=== PATIENT | female | born 1990 | race Caucasian/White ===

== ENCOUNTER 2016-11-01 20:30 | Emergency (ER) | payer OTHER ==
[2016-11-01 20:41] VITALS: BP 122/70; PULSE 84; RESP 16; TEMP 99.2; O2SAT 100
--- NOTE | 2016-11-01 21:12 | ED PDOC ---
HPI: Female Pain Time Seen by Provider: 11/01/16 20:51 Chief Complaint (Nursing): Female Genitourinary Chief Complaint (Provider): vaginal discomfort History Per: Patient History/Exam Limitations: no limitations Onset/Duration Of Symptoms: Days (1) Current Symptoms Are (Timing): Still Present Additional History Per: Patient Additional Complaint(s): 26 y/o female presents for eval of vaginal discomfort x 1 day. Patient states she feels "uncomfortable" down there, and notes a foul-smelling odor that started today. Patient states she treated herself with monistat last week for symptoms of yeast infection because she usually gets one when she switches soaps. Denies fever, nausea/vomiting, abdominal/pelvic pain, vaginal bleeding/ discharge. Patient states she is sexually active with one partner and does not use protection; no reason to suspect STD. Past Medical History Reviewed: Historical Data, Nursing Documentation, Vital Signs Vital Signs: Last Vital Signs Temp 99.2 F 11/01/16 20:39 Pulse 84 11/01/16 20:39 Resp 16 11/01/16 20:39 BP 122/70 11/01/16 20:39 Pulse Ox 100 11/01/16 20:39 - Medical History PMH: No Chronic Diseases, Gastritis - Surgical History Surgical History: No Surg Hx - Family History Family History: States: Unknown Family Hx - Living Arrangements Living Arrangements: With Family - Home Medications Home Medications: Ambulatory Orders Medication Instructions Recorded Omeprazole [PrilOSEC] 40 mg PO DAILY #30 ecc 09/08/14 Omeprazole Magnesium [Prilosec Otc] 20 mg PO DAILY #14 tcp 02/08/15 Azithromycin [Zithromax Z-Luis Enrique] 250 mg PO DAILY #1 packet 04/23/15 Benzonatate [Tessalon Perles] 200 mg PO Q8H PRN #30 tab 04/23/15 Fluconazole [Diflucan] 150 mg PO ONCE #1 tab 11/01/16 Metronidazole [Flagyl] 500 mg PO BID #14 tablet 11/01/16 - Allergies Allergies/Adverse Reactions: Allergies Allergy/AdvReac Type Severity Reaction Status Date / Time No Known Allergies Allergy Verified 11/01/16 20:39 Review of Systems ROS Statement: Except As Marked, All Systems Reviewed And Found Negative Genitourinary Female: Positive for: Other ("discomfort") Physical Exam - Reviewed Nursing Documentation Reviewed: Yes Vital Signs Reviewed: Yes - Physical Exam Appears: Positive for: Well, Non-toxic, No Acute Distress Head Exam: Positive for: ATRAUMATIC, NORMAL INSPECTION, NORMOCEPHALIC Skin: Positive for: Normal Color Cardiovascular/Chest: Positive for: Regular Rate, Rhythm Respiratory: Positive for: Normal Breath Sounds Gastrointestinal/Abdominal: Positive for: Normal Exam, Bowel Sounds, Soft. Negative for: Tenderness Pelvic Exam: Positive for: External Exam Normal, No Cerv. Motion Tender, Discharge (small white/clear discharge noted vaginal vault; + "fishy" odor noted ), Other (exam chaperoned by medical equipment repair technicianeladio Elam). Negative for: Active Bleeding Extremity: Positive for: Normal ROM Neurologic/Psych: Positive for: Alert, Oriented - ECG O2 Sat by Pulse Oximetry: 100 - Progress ED Course And Treament: urine, cultures PAtient educated on findings, discharged with rx Flagyl and Diflucan. Advised follow up [facility] 2-3 days. Return to ED for worsening/concerning symptoms. Disposition - Clinical Impression Clinical Impression: Bacterial vaginosis - Patient ED Disposition Is Patient to be Admitted: No Counseled Patient/Family Regarding: Studies Performed, Diagnosis, Need For Followup, Rx Given - Disposition Disposition: Routine/Home Disposition Time: 21:48 Condition: GOOD Additional Instructions: Follow up with [facility] in 2-3 days. Use medication as directed. Return to ED for worsening/concerning symptoms. Prescriptions: Fluconazole [Diflucan] 150 mg PO ONCE #1 tab Metronidazole [Flagyl] 500 mg PO BID #14 tablet Instructions: Bacterial Vaginosis (ED)
== END 2016-11-01 22:25 | disposition home or self-care (01) ==
LOC: H.ER 20:30
DX: N76.0 Acute vaginitis (principal)

== ENCOUNTER 2017-02-27 07:19 | Day surgery (SDC) | payer OTHER ==
[2017-02-27 07:28] VITALS: BMI 22.6
[2017-02-27] MEDS ORDERED: Lactated Ringer's 500 ML IV ONE (07:40)
[2017-02-27 07:52] VITALS: O2SAT 100
[2017-02-27] MEDS ORDERED: Propofol 10 mg/ml Inj (20 ML) ONE (08:00)
[2017-02-27] MEDS ORDERED: Lidocaine 2% MPF (5 ml) Inj ONE (08:02)
[2017-02-27 09:33] VITALS: TEMP 96.8
[2017-02-27 09:34] VITALS: BP 108/70; PULSE 76; RESP 18
== END 2017-02-27 09:36 | disposition home or self-care (01) ==
LOC: H.ENDO 07:19
PROVIDERS: ATTEND Internal Medicine Gastroenterology
DX: K20.9 Esophagitis, unspecified (principal); K29.50 Unspecified chronic gastritis without bleeding; K44.9 Diaphragmatic hernia without obstruction or gangrene
CPT/HCPCS: 43239; 88305; J2704; J7120

== ENCOUNTER 2017-06-27 19:11 | Emergency (ER) | payer MEDICAID, OTHER ==
[2017-06-27 19:11] VITALS: BMI 22.6
[2017-06-27 19:29] VITALS: BP 127/67; PULSE 86; RESP 16; TEMP 97.9; O2SAT 100
--- NOTE | 2017-06-27 20:32 | ED PDOC ---
HPI: Female Pain Time Seen by Provider: 06/27/17 19:31 Chief Complaint (Nursing): Female Genitourinary Chief Complaint (Provider): yeast infection History Per: Patient History/Exam Limitations: no limitations Onset/Duration Of Symptoms: Days (1 week) Associated Symptoms: denies: Fever, Chills, Nausea, Vomiting, Diarrhea, Loss Of Appetite Additional Complaint(s): Itchy discharge for 2 week similar to previous episode of yeast infection. Had leftover vaginal topical cream from previous infection which she used, but not improved. Also concerned about STIs due to having unprotected sex. Denies rash or lesions. Denies fever or abdominal pain Past Medical History Reviewed: Historical Data, Nursing Documentation, Vital Signs Vital Signs: Last Vital Signs Temp 97.9 F 06/27/17 19:26 Pulse 86 06/27/17 19:26 Resp 16 06/27/17 19:26 BP 127/67 06/27/17 19:26 Pulse Ox 100 06/27/17 19:26 - Medical History PMH: Gastritis Denies: Chronic Kidney Disease - Family History Family History: States: Unknown Family Hx - Home Medications Home Medications: Ambulatory Orders Medication Instructions Recorded Fluconazole [Diflucan] 150 mg PO QWK #2 tab 06/27/17 - Allergies Allergies/Adverse Reactions: Allergies Allergy/AdvReac Type Severity Reaction Status Date / Time No Known Allergies Allergy Verified 06/27/17 19:26 Review of Systems ROS Statement: Except As Marked, All Systems Reviewed And Found Negative (and as per HPI) Gastrointestinal: Negative for: Nausea, Vomiting, Abdominal Pain, Diarrhea Genitourinary Female: Positive for: Vaginal Discharge. Negative for: Dysuria, Frequency, Vaginal Bleeding, Pelvic Pain, Rash Skin: Negative for: Rash, Lesions Physical Exam - Reviewed Nursing Documentation Reviewed: Yes Vital Signs Reviewed: Yes - Physical Exam Appears: Positive for: No Acute Distress Head Exam: Positive for: ATRAUMATIC, NORMOCEPHALIC Skin: Positive for: Warm, Dry Gastrointestinal/Abdominal: Positive for: Soft. Negative for: Tenderness, Mass , Distended, Guarding, Rebound Back: Negative for: L CVA Tenderness, R CVA Tenderness - ECG O2 Sat by Pulse Oximetry: 100 Disposition - Clinical Impression Clinical Impression: Vaginitis - Disposition Referrals: Saúl Rust DO [Staff Provider] - Disposition: Routine/Home Disposition Time: 20:34 Condition: GOOD Additional Instructions: YOU WILL BE CONTACTED IF YOUR OTHER TESTS ARE ABNORMAL PLEASE FOLLOW UP WITH YOUR RN HOSPICE IN 1-2 WEEKS FOR REEVALUATION Prescriptions: Fluconazole [Diflucan] 150 mg PO QWK #2 tab Instructions: Vaginitis (ED), Safe Sex (ED)
== END 2017-06-27 22:18 | disposition home or self-care (01) ==
LOC: H.ER 19:11
DX: N76.0 Acute vaginitis (principal)

== ENCOUNTER 2018-08-12 04:34 | Emergency (ER) | payer MEDICAID ==
[2018-08-12 04:35] VITALS: BMI 22.6
[2018-08-12 04:42] VITALS: O2SAT 100
[2018-08-12] MEDS ORDERED: Sodium Chloride 0.9% 1,000 ML IV STA (04:56)
--- NOTE | 2018-08-12 05:14 | ED PDOC ---
HPI: Abdomen Time Seen by Provider: 08/12/18 04:43 Chief Complaint (Nursing): Abdominal Pain Chief Complaint (Provider): Abdominal Pain History Per: Patient History/Exam Limitations: no limitations Onset/Duration Of Symptoms: Hrs (x11) Current Symptoms Are (Timing): Still Present Location Of Pain/Discomfort: Epigastric Additional Complaint(s): 28 y/o female with a PMHx of Gastritis presents to the ED for evaluation of abdominal pain since 6 PM last night. Patient states pain is non- radiating and is located in the epigastric area. Patient admits to drinking alcohol 24 hours ago. Otherwise, patient notes of having a normal appetite. Denies nausea, vomiting, diarrhea and fever PMD: no provider Past Medical History Reviewed: Historical Data, Nursing Documentation, Vital Signs Vital Signs: Last Vital Signs Temp 97.9 F 08/12/18 04:40 Pulse 84 08/12/18 04:40 Resp 17 08/12/18 04:40 BP 132/83 08/12/18 04:40 Pulse Ox 100 08/12/18 04:40 - Medical History PMH: Gastritis Denies: Chronic Kidney Disease - Surgical History Surgical History: No Surg Hx - Family History Family History: States: Unknown Family Hx - Social History Alcohol: Occasional - Home Medications Home Medications: Ambulatory Orders Medication Instructions Recorded Fluconazole [Diflucan] 150 mg PO QWK #2 tab 06/27/17 Esomeprazole Magnesium [Nexium] 20 mg PO QAM #14 ecc 08/12/18 - Allergies Allergies/Adverse Reactions: Allergies Allergy/AdvReac Type Severity Reaction Status Date / Time No Known Allergies Allergy Verified 06/27/17 19:26 Review of Systems ROS Statement: Except As Marked, All Systems Reviewed And Found Negative Constitutional: Negative for: Fever Gastrointestinal: Positive for: Abdominal Pain. Negative for: Nausea, Vomiting, Diarrhea Physical Exam - Reviewed Nursing Documentation Reviewed: Yes Vital Signs Reviewed: Yes - Physical Exam Appears: Positive for: No Acute Distress Head Exam: Positive for: ATRAUMATIC, NORMOCEPHALIC Skin: Positive for: Normal Color, Warm, Dry Eye Exam: Positive for: Normal appearance, EOMI, PERRL Neck: Positive for: Normal, Painless ROM Cardiovascular/Chest: Positive for: Regular Rate, Rhythm. Negative for: Murmur Respiratory: Positive for: Normal Breath Sounds. Negative for: Respiratory Distress Gastrointestinal/Abdominal: Positive for: Tenderness (mild epigastric tenderness) Extremity: Positive for: Normal ROM. Negative for: Deformity Neurological/Psych: Positive for: Awake, Alert, Oriented. Negative for: Motor/Sensory Deficits - Laboratory Results Result Diagrams: 08/12/18 05:20 08/12/18 05:20 - ECG O2 Sat by Pulse Oximetry: 100 (RA) Pulse Ox Interpretation: Normal Medical Decision Making Medical Decision Making: Time: 0456 Impression: 28 y/o female with epigstric pain, in setting of known history of Gastritis -- CMP -- Lipase -- ED Urine -- ED Urine Dipstick -- CBC with Differentials -- Sodium Chloride IV 1000 mls/hr -- Pepcid 20 mg PO -- Zofran Inj 4 mg IVP -- Heplock Insertion -- Urinalysis Time: 42 -- On re-evaluation, patient reports an improvement in symptoms. Patient is stable for discharge home with a diagnosis of gastritis Scribe Attestation: Documented by Misael Power, acting as a scribe Juana Riddle MD. Provider Scribe Attestation: All medical record entries made by the Scribe were at my direction and personally dictated by me. I have reviewed the chart and agree that the record accurately reflects my personal performance of the history, physical exam, medical decision making, and the department course for this patient. I have also personally directed, reviewed, and agree with the discharge instructions and disposition. Disposition - Clinical Impression Clinical Impression: Gastritis Counseled Patient/Family Regarding: Studies Performed, Diagnosis, Rx Given - Disposition Disposition: Routine/Home Disposition Time: 06:42 Condition: STABLE Prescriptions: Esomeprazole Magnesium [Nexium] 20 mg PO QAM #14 ecc Instructions: Gastritis Forms: [employer] (Sinhala)
[2018-08-12 05:24] LABS: SQUAMOUS EPITHIAL 3 /hpf (0-5); URINE BILIRUBIN NEGATIVE (NEGATIVE); URINE BLOOD NEGATIVE (NEGATIVE); URINE CLARITY CLEAR (Clear); URINE COLOR STRAW (YELLOW); URINE GLUCOSE (UA) NEG (NEGATIVE); URINE LEUKOCYTE ESTERASE NEG Leu/uL (Negative); URINE PROTEIN NEGATIVE (NEGATIVE); URINE UROBILINOGEN 0.2-1.0 mg/dL (0.2-1.0)
[2018-08-12 05:29] LABS: BASO # 0.1 K/uL (0.0-0.2); BASO % 1.1 % (0.0-2.0); EOS # 0.1 K/uL (0.0-0.7); EOS % 0.7 % (0.0-4.0); HEMOGLOBIN 12.5 g/dL (12.0-16.0); LYMPH # 2.6 K/uL (1.0-4.3); LYMPH % 30.1 % (20.0-40.0); MEAN CELL VOLUME 88.7 fl (81.0-99.0); MEAN CORPUSCULAR HEMOGLOBIN 29.2 pg (27.0-31.0); MEAN CORPUSCULAR HGB CONC 32.9 g/dL (33.0-37.0); MONO # 0.5 K/uL (0.0-0.8); MONO % 5.9 % (0.0-10.0); NEUT # 5.4 K/uL (1.8-7.0); NEUT % 62.2 % (50.0-75.0); RBC 4.28 Mil/uL (3.80-5.20); RED CELL DISTRIBUTION WIDTH 13.6 % (11.5-14.5); WHITE BLOOD COUNT 8.6 K/uL (4.8-10.8)
[2018-08-12 05:37] LABS: ALB/GLOB RATIO 1.3 (1.0-2.1); ALBUMIN 4.1 g/dL (3.5-5.0); ALT/SGPT 24 U/L (9-52); AST/SGOT 20 U/L (14-36); BLOOD UREA NITROGEN 13 mg/dl (7-17); CALCIUM 9.4 mg/dL (8.4-10.2); GFR NON-AFRICAN AMERICAN > 60; LIPASE 60 U/L (23-300)
[2018-08-12 06:59] VITALS: BP 122/71; PULSE 74; RESP 18; TEMP 98.5
== END 2018-08-12 06:57 | disposition home or self-care (01) ==
LOC: H.ER 04:34
DX: K29.70 Gastritis, unspecified, without bleeding (principal)
CPT/HCPCS: 80053; 81003; 81025; 83690; 85025; 96360; 99283; J2405; J7030

== ENCOUNTER 2018-10-13 21:44 | Inpatient (IN) | payer MEDICAID ==
[2018-10-13 21:44] VITALS: BMI 22.6
[2018-10-13 22:28] LABS: HEMOGLOBIN 12.8 g/dL (12.0-16.0); MEAN CELL VOLUME 86.1 fl (81.0-99.0); MEAN CORPUSCULAR HEMOGLOBIN 28.6 pg (27.0-31.0); MEAN CORPUSCULAR HGB CONC 33.2 g/dL (33.0-37.0); RBC 4.48 Mil/uL (3.80-5.20); RED CELL DISTRIBUTION WIDTH 12.9 % (11.5-14.5); WHITE BLOOD COUNT 9.7 K/uL (4.8-10.8)
[2018-10-13] MEDS ORDERED: Sodium Chloride 0.9% 1,000 ML IV STA (22:30)
--- NOTE | 2018-10-13 22:30 | ED PDOC ---
HPI: Abdomen Time Seen by Provider: 10/13/18 21:46 Chief Complaint (Nursing): Abdominal Pain History Per: Patient History/Exam Limitations: clinical condition Onset/Duration Of Symptoms: Days Current Symptoms Are (Timing): Still Present Location Of Pain/Discomfort: Epigastric Associated Symptoms: Nausea, Vomiting, Diarrhea. denies: Fever, Chills Exacerbating Factors: Food Additional Complaint(s): 28 year old F with PMHx of gastritis and hiatal hernia presenting with nausea, vomiting, diarrhea, and abdominal pain. Patient states that just returned from [place] today where she admits she was drinking alcoholic beverages, had watery diarrhea yesterday and today had two episodes of vomiting, states mostly food colored that was blood tinged. States that her pain is burning in quality and located mostly in epigastric area but also bilateral upper quadrants. Denies fevers, chills. Denies abdominal surgeries. States she had an endoscopy last week with Maikel that showed "the same hiatal hernia with GERD". States she's compliant daily with her Dexilant. PMD: Maikel Past Medical History Reviewed: Historical Data, Nursing Documentation, Vital Signs Vital Signs: Last Vital Signs Temp 97.5 F L 10/13/18 21:47 Pulse 78 10/13/18 21:47 Resp 16 10/13/18 21:47 BP 133/73 10/13/18 21:47 Pulse Ox 98 10/13/18 21:47 Primary Care Provider: Suzanne Astudillo - Medical History PMH: Gastritis Denies: Chronic Kidney Disease - Family History Family History: States: Unknown Family Hx - Home Medications Home Medications: Ambulatory Orders Medication Instructions Recorded Dexlansoprazole [Dexilant] 30 mg PO DAILY 10/14/18 - Allergies Allergies/Adverse Reactions: Allergies Allergy/AdvReac Type Severity Reaction Status Date / Time No Known Allergies Allergy Verified 06/27/17 19:26 Review of Systems ROS Statement: Except As Marked, All Systems Reviewed And Found Negative Gastrointestinal: Positive for: Nausea, Vomiting, Abdominal Pain, Diarrhea. Negative for: Constipation Physical Exam - Reviewed Nursing Documentation Reviewed: Yes Vital Signs Reviewed: Yes - Physical Exam Appears: Positive for: Well, Non-toxic, No Acute Distress Head Exam: Positive for: ATRAUMATIC, NORMAL INSPECTION, NORMOCEPHALIC Skin: Positive for: Normal Color, Warm, DRY Eye Exam: Positive for: EOMI, Normal appearance, PERRL ENT: Positive for: Normal ENT Inspection Neck: Positive for: Normal, Painless ROM Cardiovascular/Chest: Positive for: Regular Rate, Rhythm Respiratory: Positive for: CNT, Normal Breath Sounds Gastrointestinal/Abdominal: Positive for: Soft, Tenderness (mild tenderness in epigastric area, equivocal Bess's sign). Negative for: Organomegaly, Mass, Distended, Guarding, Rebound, Hernia Back: Positive for: Normal Inspection Extremity: Positive for: Normal ROM Neurological/Psych: Positive for: Awake, Alert, Normal Tone - Laboratory Results Result Diagrams: 10/13/18 22:23 10/13/18 23:16 - ECG O2 Sat by Pulse Oximetry: 98 Pulse Ox Interpretation: Normal Medical Decision Making Medical Decision MakinPM Hx of gastritis and hiatal hernia presenting with nausea, vomiting, diarrhea, and abdominal pain; likely related to gastroenteritis and gastritis worsened by diet and alcohol consumption on recent trip to [place] --Will treat symptomatically with fluids, pepcid --Will check labs to rule out pancreatitis, biliary involvement, or other abnormalities --Will re-eval 1200AM --Patient not improving with gastritis treatment --Patient complaining of pain worsening on R upper abdomen --CT ordered CT of the abdomen and pelvis with contrast Clinical statement: Pain. Technique: Multiple axial CT images were obtained from the base of the lungs through the floor of the pelvis utilizing 5 mm axial slices after administration of nonionic intravenous contrast. Coronal and sagittal reconstructions were also obtained. Comparison: None. Findings: Chest: The visualized lung bases are clear. Abdomen: The gallbladder significantly distended, with gallbladder wall thickening and pericholecystic free fluid. There is an impacted gallstone in the neck of the gallbladder. Several smaller stones are seen in the fundus of the gallbladder as well. There is no evidence of biliary ductal dilatation. The liver is enlarged, measuring up to 22.8 cm in diameter. No focal hepatic lesions are identified. The hepatic and portal veins are patent. The spleen, pancreas, kidneys, and adrenal glands are unremarkable. The aorta is within normal limits. There is no evidence of abdominal lymphadenopathy or ascites. There is mild fluid distention of bowel wall thickening in the small bowel. Pelvis: Moderate amount of stool fills the colon. The colon is otherwise unremarkable, with no obstructive or inflammatory changes. The urinary bladder is within normal limits. There is a simple cyst in the left adnexa measuring 3.3 x 2.9 cm. There is a small amount of free fluid in the cul-de-sac. The other pelvic structures appear grossly intact. There is no evidence of pelvic lymphadenopathy. Bones: There are no suspicious osseous abnormalities seen. Impression: 1. Distended gallbladder with gallbladder wall thickening, pericholecystic free fluid, and gallstones. The findings are highly suspicious for acute cholecystitis. 2. Hepatomegaly. 3. Mild enteritis. 4. Mild constipation. 5. Large simple cyst in the left ovary. 6. Small amount of free fluid in the cul-de-sac of the pelvis, likely physiologic. Electronically signed on October 14, 2018 2:47:55 AM EDT by: Saúl Saxena M.D., M.B.A., Certified By [employer] Trained MRI and CT Specialist Explained results to patient student affairs vice president consulted Bereket Espinoza of [place] aware Blood cultures, antibiotics ordered, patient made NPO Disposition - Clinical Impression Clinical Impression: Acute cholecystitis - Patient ED Disposition Is Patient to be Admitted: Yes Counseled Patient/Family Regarding: Studies Performed - Disposition Disposition Time: 02:25 Condition: FAIR
[2018-10-13 23:58] LABS: ALB/GLOB RATIO 1.4 (1.0-2.1); ALBUMIN 4.4 g/dL (3.5-5.0); ALT/SGPT 27 U/L (9-52); AST/SGOT 24 U/L (14-36); BLOOD UREA NITROGEN 6 mg/dl (7-17); CALCIUM 9.4 mg/dL (8.4-10.2); GFR NON-AFRICAN AMERICAN > 60; LIPASE 136 U/L (23-300)
[2018-10-14] MEDS ORDERED: Alum-Mag Hydrox-Simethicone Susp (30 mL) PO ONE (01:11)
[2018-10-14] MEDS ORDERED: Alum-Mag Hydrox-Simethicone Susp (30 mL) ONE (01:18)
[2018-10-14] MEDS ORDERED: Iohexol 300 100 ML IJ ONE (01:19)
[2018-10-14] MEDS ORDERED: Sodium Chloride 0.9% 50 ML IV ONE (01:20)
[2018-10-14] MEDS ORDERED: Piperacillin/Tazobact 3.375 GM in Sodium Chloride 0.9% 100 ML IVPB STA (02:50)
[2018-10-14] MEDS ORDERED: Piperacillin/Tazobact 3.375 gm Inj IVPB ONE (03:41)
[2018-10-14 03:51] LABS: VENOUS BLOOD GAS PCO2 42 mmHg (40-60); VENOUS BLOOD GAS PO2 29 mm/Hg (30-55)
[2018-10-14 04:32] LABS: LYMPH % 17.4 % (20.0-40.0); MEAN PLATELET VOLUME 10.7 fl (7.2-11.7); MONO % 9.6 % (0.0-10.0); NEUT % 72.4 % (50.0-75.0)
[2018-10-14 04:33] LABS: BASO % 0.3 % (0.0-2.0); EOS % 0.3 % (0.0-4.0); LYMPH # 1.7 K/uL (1.0-4.3); MONO # 0.9 K/uL (0.0-0.8); NEUT # 7.1 K/uL (1.8-7.0); NRBC % 0.1 % (0.0-0.0)
--- NOTE | 2018-10-14 04:55 | CP.PCM.CON ---
<Merlin Tyson - Last Filed: 10/14/18 05:06> History of Present Illness - History of Present Illness History of Present Illness: General Surgery Consult Note for Dr. Locke Reason for consult: abd pain, nausea/vomiting, diarrhea, suspected cholecystitis 28F with PMH of gastritis and hiatal hernia presenting with nausea/vomiting, diarrhea, and abdominal pain. Patient states that returned from [facility] today. She reports her symptom began 2-3 days ago while on vacation. She had w atery diarrhea and two episodes of vomiting with NBNB emesis. She rate pain as moderate located in epigatric radiating to RUQ. She reports that she had an endoscopy last week with [facility] that showed hiatal hernia with GERD. She takes Dexilant daily for GERD. Denies fevers, chills, cp, SOB, constipation, incontinence or urinary symptoms, or abdominal surgeries. PMD: [facility] PMH: gastritis PSH: denies ALL: NKDA Review of Systems - Review of Systems All systems: reviewed and no additional remarkable complaints except (as per HPI) Past Patient History - Past Medical History & Family History Past Medical History?: No - Past Social History Smoking Status: Never Smoked - PULMONARY Hx Respiratory Disorders: No - NEUROLOGICAL Hx Neurological Disorder: No - HEENT Hx HEENT Problems: No - RENAL Hx Chronic Kidney Disease: No - ENDOCRINE/METABOLIC Hx Endocrine Disorders: No - HEMATOLOGICAL/ONCOLOGICAL Hx Blood Disorders: No - INTEGUMENTARY Hx Dermatological Problems: No - MUSCULOSKELETAL/RHEUMATOLOGICAL Hx Musculoskeletal Disorders: No - GASTROINTESTINAL Hx Gastritis: Yes - GENITOURINARY/GYNECOLOGICAL Hx Genitourinary Disorders: No - PSYCHIATRIC Hx Psychophysiologic Disorder: No Hx Substance Use: No - SURGICAL HISTORY Hx Surgeries: No - ANESTHESIA Hx Anesthesia: Yes Hx Anesthesia Reactions: No Hx Malignant Hyperthermia: No Meds Allergies/Adverse Reactions: Allergies Allergy/AdvReac Type Severity Reaction Status Date / Time No Known Allergies Allergy Verified 06/27/17 19:26 Physical Exam - Constitutional Appears: No Acute Distress - Head Exam Head Exam: ATRAUMATIC, NORMOCEPHALIC - Eye Exam Eye Exam: EOMI, Normal appearance Pupil Exam: PERRL - ENT Exam ENT Exam: Mucous Membranes Dry - Respiratory Exam Respiratory Exam: NORMAL BREATHING PATTERN - Cardiovascular Exam Cardiovascular Exam: REGULAR RHYTHM - GI/Abdominal Exam GI & Abdominal Exam: Normal Bowel Sounds, Soft, Tenderness (RUQ/EPIGASTRIC). absent: Distended, Firm, Guarding, Hernia, Rebound, Rigid Additional comments: (-) Star sign - Extremities Exam Extremities exam: Positive for: normal capillary refill, pedal pulses present - Back Exam Back exam: absent: CVA tenderness (L), CVA tenderness (R) - Neurological Exam Neurological exam: Alert, CN II-XII Intact, Oriented x3 - Psychiatric Exam Psychiatric exam: Normal Affect, Normal Mood - Skin Skin Exam: Dry, Intact, Normal Color, Warm Results - Vital Signs Recent Vital Signs: Last Vital Signs Temp 98.5 F 10/14/18 04:19 Pulse 77 10/14/18 04:19 Resp 19 10/14/18 04:19 BP 112/69 10/14/18 04:19 Pulse Ox 99 10/14/18 04:19 - Labs Result Diagrams: 10/13/18 22:23 10/13/18 23:16 Labs: Laboratory Results - last 24 hr 10/13/18 10/13/18 10/14/18 22:23 23:16 03:42 WBC 9.7 RBC 4.48 Hgb 12.8 Hct 38.6 MCV 86.1 D MCH 28.6 MCHC 33.2 RDW 12.9 Plt Count 251 MPV 10.7 Neut % (Auto) 72.4 Lymph % (Auto) 17.4 L [place] % (Auto) 9.6 Eos % (Auto) 0.3 Baso % (Auto) 0.3 Neut # (Auto) 7.1 H Lymph # (Auto) 1.7 [place] # (Auto) 0.9 H Eos # (Auto) 0.0 Baso # (Auto) 0.0 pO2 29 L VBG pH 7.40 VBG pCO2 42 VBG HCO3 24.6 VBG Total CO2 27.3 VBG O2 Sat (Calc) 59.6 VBG Base Excess 1.0 VBG Potassium 4.2 Glucose 98 Lactate 1.1 FiO2 21.0 Sodium 136 134.0 Potassium 3.7 Chloride 100 104.0 Carbon Dioxide 25 Anion Gap 15 BUN 6 L Creatinine 0.6 L Est GFR ( Amer) > 60 Est GFR (Non-Af Amer) > 60 Random Glucose 95 Calcium 9.4 Total Bilirubin 0.2 AST 24 ALT 27 Alkaline Phosphatase 66 Total Protein 7.7 Albumin 4.4 Globulin 3.2 Albumin/Globulin Ratio 1.4 Lipase 136 Venous Blood Potassium 4.2 Assessment & Plan - Assessment and Plan (Free Text) Assessment: 28 F who presents with abd pain, nausea/vomiting and diarrhea Plan: -NPO -IVF -Analgesics/Anti-emetics PRN -f/u RUQ US -Further recommendations as per Dr. Chucky Tyson PGY2 - Date & Time Date: 10/14/18 Time: 05:00 <Orville Locke - Last Filed: 10/14/18 19:33> Meds - Medications Medications: Current Medications Acetaminophen (Tylenol 325mg Tab) 650 mg PO Q6 PRN PRN Reason: Pain, Mild (1-3) Lactated Ringer's (Lactated Ringer's) 1,000 mls @ 125 mls/hr IV .Q8H ON LICENSE OF [facility] Last Admin: 10/14/18 18:33 Dose: 125 mls/hr Ciprofloxacin (Cipro 400mg/200ml Dsw) 400 mg in 200 mls @ 200 mls/hr IVPB Q12 [facility]; Protocol Last Admin: 10/14/18 10:00 Dose: 200 mls/hr Metronidazole (Flagyl 500mg/100ml Ns) 100 mls @ 100 mls/hr IVPB Q8 [facility]EL[facility]; Protocol Last Admin: 10/14/18 18:27 Dose: 100 mls/hr Morphine Sulfate (Morphine) 2 mg IVP Q4 PRN PRN Reason: Pain, severe (8-10) Ondansetron HCl (Zofran Inj) 4 mg IVP Q6 PRN PRN Reason: Nausea/Vomiting Pantoprazole Sodium (Protonix Inj) 40 mg IVP DAILY ON LICENSE OF [facility] Last Admin: 10/14/18 10:39 Dose: 40 mg Results - Vital Signs Recent Vital Signs: Last Vital Signs Temp 98.2 F 10/14/18 16:08 Pulse 84 10/14/18 16:08 Resp 18 10/14/18 16:08 BP 113/69 10/14/18 16:08 Pulse Ox 99 10/14/18 16:08 - Labs Result Diagrams: 10/14/18 08:30 10/14/18 08:30 Labs: Laboratory Results - last 24 hr 10/13/18 10/13/18 10/14/18 22:23 23:16 03:42 WBC 9.7 RBC 4.48 Hgb 12.8 Hct 38.6 MCV 86.1 D MCH 28.6 MCHC 33.2 RDW 12.9 Plt Count 251 MPV 10.7 Neut % (Auto) 72.4 Lymph % (Auto) 17.4 L [place] % (Auto) 9.6 Eos % (Auto) 0.3 Baso % (Auto) 0.3 Neut # (Auto) 7.1 H Lymph # (Auto) 1.7 [place] # (Auto) 0.9 H Eos # (Auto) 0.0 Baso # (Auto) 0.0 PT INR APTT pO2 29 L VBG pH 7.40 VBG pCO2 42 VBG HCO3 24.6 VBG Total CO2 27.3 VBG O2 Sat (Calc) 59.6 VBG Base Excess 1.0 VBG Potassium 4.2 Glucose 98 Lactate 1.1 FiO2 21.0 Sodium 136 134.0 Potassium 3.7 Chloride 100 104.0 Carbon Dioxide 25 Anion Gap 15 BUN 6 L Creatinine 0.6 L Est GFR ( Amer) > 60 Est GFR (Non-Af Amer) > 60 Random Glucose 95 Calcium 9.4 Total Bilirubin 0.2 AST 24 ALT 27 Alkaline Phosphatase 66 Total Protein 7.7 Albumin 4.4 Globulin 3.2 Albumin/Globulin Ratio 1.4 Lipase 136 Venous Blood Potassium 4.2 Blood Type Blood Type Confirm Antibody Screen BBK History Checked 10/14/18 10/14/18 10/14/18 08:30 08:30 08:30 WBC 9.3 RBC 3.92 Hgb 11.3 L Hct 33.8 L MCV 86.1 MCH 28.7 MCHC 33.3 RDW 12.8 Plt Count 191 MPV Neut % (Auto) Lymph % (Auto) [place] % (Auto) Eos % (Auto) Baso % (Auto) Neut # (Auto) Lymph # (Auto) [place] # (Auto) Eos # (Auto) Baso # (Auto) PT 11.5 INR 1.0 APTT 28.8 pO2 VBG pH VBG pCO2 VBG HCO3 VBG Total CO2 VBG O2 Sat (Calc) VBG Base Excess VBG Potassium Glucose Lactate FiO2 Sodium 136 Potassium 3.5 L Chloride 104 Carbon Dioxide 24 Anion Gap 12 BUN 5 L Creatinine 0.6 L Est GFR ( Amer) > 60 Est GFR (Non-Af Amer) > 60 Random Glucose 93 Calcium 8.5 Total Bilirubin AST ALT Alkaline Phosphatase Total Protein Albumin Globulin Albumin/Globulin Ratio Lipase Venous Blood Potassium Blood Type Blood Type Confirm Antibody Screen BBK History Checked 10/14/18 10/14/18 08:30 10:10 WBC RBC Hgb Hct MCV MCH MCHC RDW Plt Count MPV Neut % (Auto) Lymph % (Auto) [place] % (Auto) Eos % (Auto) Baso % (Auto) Neut # (Auto) Lymph # (Auto) [place] # (Auto) Eos # (Auto) Baso # (Auto) PT INR APTT pO2 VBG pH VBG pCO2 VBG HCO3 VBG Total CO2 VBG O2 Sat (Calc) VBG Base Excess VBG Potassium Glucose Lactate FiO2 Sodium Potassium Chloride Carbon Dioxide Anion Gap BUN Creatinine Est GFR ( Amer) Est GFR (Non-Af Amer) Random Glucose Calcium Total Bilirubin AST ALT Alkaline Phosphatase Total Protein Albumin Globulin Albumin/Globulin Ratio Lipase Venous Blood Potassium Blood Type O POSITIVE Blood Type Confirm O POSITIVE Antibody Screen Negative BBK History Checked No verified bt Assessment & Plan - Assessment and Plan (Free Text) Plan: 28yo F presents to ED for evaulation of RUQ pain radiating to the sharp, 02/28 which started monday morning in [facility]. Pt flew back to [place] and immediately went to ED. pt had associated symptoms of nausea, vomiting. Denies any fever, chills, sob, cp, dysuria. Pt had diarrhea while in [place] but that has resolved. PMHx: Gastritis, Hx of EGD, Hiatal HErnia? PShx: denies allergy: nkda LMP: 3 days ago gen: awake, alert, NAD heent: nc/at, eomi, perrla, no scleral icterus, neck supple no acute respiratory distress abd: soft, ND, +ruq tenderness, no hernias, no peritoneal signs ext: no calf tenderness b/l 28yo F with RUQ pain secondary to acute cholecystitis CT/US scan reviewed - distended gallbladder, stone at GB neck, +edema, CBD 1cm -cont pain control -iv abx -repeat labs in AM -MRCP IVF -laparoscopic cholecystectomy possible monday/monday
[2018-10-14] MEDS: Lactated Ringer's 1,000 ML IV SCH ×3 (05:18→20:48)
[2018-10-14 08:45] LABS: HEMOGLOBIN 11.3 g/dL (12.0-16.0); MEAN CELL VOLUME 86.1 fl (81.0-99.0); MEAN CORPUSCULAR HEMOGLOBIN 28.7 pg (27.0-31.0); MEAN CORPUSCULAR HGB CONC 33.3 g/dL (33.0-37.0); RBC 3.92 Mil/uL (3.80-5.20); RED CELL DISTRIBUTION WIDTH 12.8 % (11.5-14.5); WHITE BLOOD COUNT 9.3 K/uL (4.8-10.8)
[2018-10-14 08:57] LABS: BLOOD UREA NITROGEN 5 mg/dl (7-17); CALCIUM 8.5 mg/dL (8.4-10.2); GFR NON-AFRICAN AMERICAN > 60
[2018-10-14 09:01] LABS: PROTHROMBIN TIME 11.5 Seconds (9.8-13.1)
[2018-10-14 09:04] LABS: PARTIAL THROMBOPLASTIN TIME 28.8 Seconds (25.6-37.1)
[2018-10-14] MEDS: Ciprofloxacin 400mg/200ml D5W 400 MG/200 ML BAG IVPB SCH ×2 (10:00→20:38)
[2018-10-14] MEDS: metroNIDAZOLE 500mg/100ml NS 100 ML IVPB SCH ×3 (10:29→18:27)
--- NOTE | 2018-10-14 12:40 | US ---
Date of service: 10/14/2018 HISTORY: RUQ, cholecystitis COMPARISON: Abdomen pelvis CT with contrast 10/14/2018. TECHNIQUE: Sonographic evaluation of the right upper quadrant of the abdomen. FINDINGS: LIVER: Measures 13.8 cm in length. Normal echogenicity of the liver parenchyma. No mass. No intrahepatic bile duct dilatation. GALLBLADDER: Gallbladder is mildly distended with fluid and calculi are noted layering in the dependent portion moderately. Trace fluid is seen at the distal most portion of the gallbladder fossa. No sonographic Bess sign evident. Gallbladder is only mildly distended. A calculus may be lodged at the gallbladder neck. Clinically correlate for potential early acute or subacute cholecystitis. COMMON BILE DUCT: Measures 10.0 mm. No stones. No dilatation. PANCREAS: Unremarkable as visualized. No mass. No ductal dilatation. RIGHT KIDNEY: Measures 10.6 cm in length. Normal echogenicity. No calculus, mass, or hydronephrosis. AORTA: No aneurysmal dilatation. IVC: Unremarkable. OTHER FINDINGS: None . IMPRESSION: 1. Mural thickening the gallbladder is appreciated with cholelithiasis in the lumen and moderate gallbladder distension. Trace pericholecystic fluid is seen distally. A calculus may be lodged at the gallbladder neck as well. Clinically correlate for potential cholecystitis. No sonographic Bess sign is demonstrated. 2. 10 mm dilatation of CBD. No intrahepatic biliary duct dilatation grossly evident. 3. Consider follow-up nuclear pattern biliary scan and MRCP.
--- NOTE | 2018-10-14 15:47 | CT ---
Date of service: 10/14/2018 PROCEDURE: CT Abdomen and Pelvis with contrast HISTORY: epig pain, vomiting, hx of hiatal hernia COMPARISON: None. TECHNIQUE: Following the intravenous administration of iodinated contrast material, a CT examination of the abdomen and pelvis was performed from the domes of the diaphragms to the symphysis pubis with reformatted datasets provided in axial, sagittal and coronal planes. Oral contrast was not administered as per referring physician request. Contrast dose: Omnipaque 300, 80 cc Radiation dose: Total exam DLP = 279.18 mGy-cm. This CT exam was performed using one or more of the following dose reduction techniques: Automated exposure control, adjustment of the mA and/or kV according to patient size, and/or use of iterative reconstruction technique. FINDINGS: LOWER THORAX: Unremarkable. LIVER: Unremarkable. No gross lesion, however, there is borderline intrahepatic biliary dilatation. GALLBLADDER AND BILE DUCTS: The gallbladder is distended with pericholecystic fluid surrounding it and variable cholelithiasis in the dependent lumen. A peripherally calcified but predominantly lucent calculus 1.4 cm at the region of the gallbladder neck, potentially impacted. Proximal common bile duct is dilated to 7.4 mm but otherwise normal in caliber. No radiodense choledocholithiasis. PANCREAS: Unremarkable. No gross lesion or ductal dilatation. SPLEEN: Unremarkable. ADRENALS: Unremarkable. No mass. KIDNEYS AND URETERS: Unremarkable. No hydronephrosis. No solid mass. VASCULATURE: Unremarkable. No aortic aneurysm. No aortic atherosclerotic calcification or mural plaque present. BOWEL: Stomach is poorly evaluated due to complete collapse with mural thickening difficult to completely exclude. No bowel obstruction. No gross bowel mural thickening. APPENDIX: . No definite CT evidence of appendicitis however the appendix not clearly identified in this exam. PERITONEUM: Limited fluid is seen in the dependent pelvis inferiorly. No abdominal ascites. No free intra peritoneal gas collection throughout the exam. LYMPH NODES: Unremarkable. No enlarged lymph nodes. BLADDER: Unremarkable. REPRODUCTIVE: 2.8 x 3.4 cm simple left adnexal cyst. No definite right adnexal cyst. BONES: No acute fracture. OTHER FINDINGS: None. IMPRESSION: Pattern suspicious for cholecystitis with potentially impacted calculus measure 1.4 cm at the gallbladder neck. Borderline intrahepatic biliary duct dilatation. Mild proximal CBD dilatation to 7.4 mm. No radiodense choledocholithiasis. 3.4 cm simple cyst left adnexa with minimal dependent pelvic ascites noted. Preliminary report provided by Trey, 10/14/2018, 2:47 a.m..
[2018-10-15] MEDS: metroNIDAZOLE 500mg/100ml NS 100 ML IVPB SCH ×3 (00:52→17:57)
[2018-10-15] MEDS: Lactated Ringer's 1,000 ML IV SCH ×5 (01:03→23:08)
[2018-10-15 07:08] LABS: BASO % 0.5 % (0.0-2.0); EOS # 0.2 K/uL (0.0-0.7); EOS % 2.8 % (0.0-4.0); HEMOGLOBIN 11.1 g/dL (12.0-16.0); LYMPH # 1.5 K/uL (1.0-4.3); LYMPH % 20.9 % (20.0-40.0); MEAN CELL VOLUME 86.2 fl (81.0-99.0); MEAN CORPUSCULAR HEMOGLOBIN 28.9 pg (27.0-31.0); MEAN CORPUSCULAR HGB CONC 33.6 g/dL (33.0-37.0); MEAN PLATELET VOLUME 9.3 fl (7.2-11.7); MONO # 0.7 K/uL (0.0-0.8); MONO % 10.2 % (0.0-10.0); NEUT # 4.6 K/uL (1.8-7.0); NEUT % 65.6 % (50.0-75.0); NRBC % 0.1 % (0.0-0.0); RBC 3.84 Mil/uL (3.80-5.20); RED CELL DISTRIBUTION WIDTH 12.6 % (11.5-14.5)
[2018-10-15 07:23] LABS: ALB/GLOB RATIO 1.2 (1.0-2.1); ALBUMIN 3.3 g/dL (3.5-5.0); ALT/SGPT 28 U/L (9-52); AST/SGOT 21 U/L (14-36); BLOOD UREA NITROGEN 4 mg/dl (7-17); CALCIUM 8.5 mg/dL (8.4-10.2); GFR NON-AFRICAN AMERICAN > 60
[2018-10-15] MEDS: Ciprofloxacin 400mg/200ml D5W 400 MG/200 ML BAG IVPB SCH ×2 (09:12→20:23)
--- NOTE | 2018-10-15 10:06 | CP.PCM.PN ---
<Merlin Tyson - Last Filed: 10/15/18 10:11> Subjective - Date & Time of Evaluation Date of Evaluation: 10/15/18 Time of Evaluation: 10:11 - Subjective Subjective: General Surgery Note for Dr. Robles Patient seen and examined at bedside. No acute event overnight. Patient complains of RUQ pain. Denies fever/chills or nausea/vomiting. She is tolerating diet. Patient for MRCP today. Objective - Vital Signs/Intake and Output Vital Signs (last 24 hours): Temp Pulse Resp BP Pulse Ox 98.9 F 81 20 111/70 97 10/15/18 08:36 10/15/18 08:36 10/15/18 08:36 10/15/18 08:36 10/15/18 08:36 - Medications Medications: Current Medications Acetaminophen (Tylenol 325mg Tab) 650 mg PO Q6 PRN PRN Reason: Pain, Mild (1-3) Last Admin: 10/14/18 20:42 Dose: 650 mg Lactated Ringer's (Lactated Ringer's) 1,000 mls @ 125 mls/hr IV .Q8H [facility] Last Admin: 10/15/18 06:00 Dose: Not Given Ciprofloxacin (Cipro 400mg/200ml Dsw) 400 mg in 200 mls @ 200 mls/hr IVPB Q12 [facility]EL[facility]; Protocol Last Admin: 10/15/18 09:12 Dose: 200 mls/hr Metronidazole (Flagyl 500mg/100ml Ns) 100 mls @ 100 mls/hr IVPB Q8 [facility]; Protocol Last Admin: 10/15/18 09:12 Dose: 100 mls/hr Morphine Sulfate (Morphine) 2 mg IVP Q4 PRN PRN Reason: Pain, severe (8-10) Last Admin: 10/15/18 09:20 Dose: 2 mg Ondansetron HCl (Zofran Inj) 4 mg IVP Q6 PRN PRN Reason: Nausea/Vomiting Pantoprazole Sodium (Protonix Inj) 40 mg IVP DAILY [facility] Last Admin: 10/15/18 09:14 Dose: 40 mg - Labs Labs: 10/15/18 06:00 10/15/18 06:00 PT 11.5 Seconds (9.8-13.1) 10/14/18 08:30 INR 1.0 10/14/18 08:30 APTT 28.8 Seconds (25.6-37.1) 10/14/18 08:30 - Constitutional Appears: No Acute Distress - Head Exam Head Exam: ATRAUMATIC, NORMOCEPHALIC - Eye Exam Eye Exam: EOMI, Normal appearance Pupil Exam: PERRL - ENT Exam ENT Exam: Mucous Membranes Moist - Respiratory Exam Respiratory Exam: NORMAL BREATHING PATTERN - Cardiovascular Exam Cardiovascular Exam: REGULAR RHYTHM - GI/Abdominal Exam GI & Abdominal Exam: Soft, Tenderness (RUQ), Normal Bowel Sounds. absent: Distended, Firm, Guarding, Rigid, Rebound - Neurological Exam Neurological Exam: Alert, Awake, Normal Gait, Oriented x3 - Psychiatric Exam Psychiatric exam: Normal Affect, Normal Mood - Skin Skin Exam: Dry, Intact, Normal Color, Warm Assessment and Plan - Assessment and Plan (Free Text) Assessment: 28 F who presents with cholelithiasis and dilated CBD suspected cholecystitis Plan: -CLD -IVF -Analgesics/Anti-emetics PRN -IV abx -f/u MRCP -Plan for Laparscopic cholecystectomy in [place] monday 10/16 or Tuesday 10/17 -Discussed with Dr. Margaret Tyson PGY2 <aDniel Robles - Last Filed: 10/15/18 11:51> Subjective - Date & Time of Evaluation Time of Evaluation: 11:10 - Subjective Subjective: Patient was seen and examined at the bedside. Agree with resident's note above. Tolerating clear liquid diet. Reports RUQ abdominal pain. Objective - Vital Signs/Intake and Output Vital Signs (last 24 hours): Temp Pulse Resp BP Pulse Ox 98.9 F 81 20 111/70 97 10/15/18 08:36 10/15/18 08:36 10/15/18 08:36 10/15/18 08:36 10/15/18 08:36 - Medications Medications: Current Medications Acetaminophen (Tylenol 325mg Tab) 650 mg PO Q6 PRN PRN Reason: Pain, Mild (1-3) Last Admin: 10/14/18 20:42 Dose: 650 mg Lactated Ringer's (Lactated Ringer's) 1,000 mls @ 125 mls/hr IV .Q8H [facility] Last Admin: 10/15/18 06:00 Dose: Not Given Ciprofloxacin (Cipro 400mg/200ml Dsw) 400 mg in 200 mls @ 200 mls/hr IVPB Q12 [facility] FELIPE; Protocol Last Admin: 10/15/18 09:12 Dose: 200 mls/hr Metronidazole (Flagyl 500mg/100ml Ns) 100 mls @ 100 mls/hr IVPB Q8 [facility]EL[facility]; Protocol Last Admin: 10/15/18 09:12 Dose: 100 mls/hr Morphine Sulfate (Morphine) 2 mg IVP Q4 PRN PRN Reason: Pain, severe (8-10) Ondansetron HCl (Zofran Inj) 4 mg IVP Q6 PRN PRN Reason: Nausea/Vomiting Pantoprazole Sodium (Protonix Inj) 40 mg IVP DAILY [facility]EL[facility] Last Admin: 10/15/18 09:14 Dose: 40 mg Potassium Chloride (K-Dur 20 Meq Er Tab) 20 meq PO ONCE ONE Stop: 10/15/18 12:31 - Labs Labs: 10/15/18 06:00 10/15/18 06:00 PT 11.5 Seconds (9.8-13.1) 10/14/18 08:30 INR 1.0 10/14/18 08:30 APTT 28.8 Seconds (25.6-37.1) 10/14/18 08:30 - GI/Abdominal Exam Additional comments: soft, RUQ tenderness, ND, BS+, no rebound, no guarding Assessment and Plan - Assessment and Plan (Free Text) Plan: - Continue clear liquid diet - IV fluids - Continue antibiotics - Pain control - awaiting for the official read on the MRCP - If MRCP negative for choledocholithiasis will do cholecystectomy tomorrow - NPO after midnight - Will follow
[2018-10-15] MEDS ORDERED: Potassium Chloride 20 mEq ER Tab PO ONE ×2 (10:28→12:30)
--- NOTE | 2018-10-15 12:15 | MRI ---
Date of service: 10/15/2018 PROCEDURE: Magnetic Resonance Cholangiopancreatography HISTORY: Rule out cholelithiasis, abdominal pain COMPARISON: None available. TECHNIQUE: Multiplanar, multisequence MR images of the abdomen were obtained, including heavily T2 weighted MRCP images of the biliary system. Rotating maximum intensity projection images of the biliary system were generated. FINDINGS: MRCP: The common bile duct is prominent. No evidence of choledocholithiasis. No intrahepatic biliary ductal dilatation. LIVER: Unremarkable. GALLBLADDER: Distended with cholelithiasis. Wall thickening extensive pericholecystic fluid present. Large 1.3 x 1.2 cm gallstone in the gallbladder neck/cystic duct. SPLEEN: Unremarkable. PANCREAS: Unremarkable. ADRENALS: Unremarkable. KIDNEYS: Unremarkable. AORTA: No aneurysm. ASCITES: Trace perihepatic ascites. OTHER FINDINGS: None. IMPRESSION: Distended gallbladder with gallstones and extensive wall thickening/edema and pericholecystic fluid. Large 1.3 cm gallstone in the gallbladder neck/cystic duct. MR findings consistent with acute cholecystitis. Prominent common bile duct without evidence of choledocholithiasis. Trace perihepatic ascites.
--- NOTE | 2018-10-15 13:58 | PN ---
DATE: 10/15/2018 SUBJECTIVE: The patient is seen in bed, doing well with some right upper quadrant tenderness, had MRCP today, is waiting results, possibly for ERCP tomorrow prior to having her gallbladder removed. Consults appreciated. Case discussed with all specialists. Blood work and imaging up-to-dated and reviewed. No fever, chills, nausea, vomiting, diarrhea. The patient is tolerating clear liquid diet. REVIEW OF SYSTEMS: Right upper quadrant pain, intermittent nausea, vomiting; none are present. PHYSICAL EXAMINATION: CONSTITUTIONAL: Awake, alert, and oriented. HEENT: Normal. CARDIAC: S1 and S2. Regular rate and rhythm. No murmurs, rubs, or gallops. LUNGS: Clear lung lópez bilaterally. ABDOMEN: Soft, nontender except very mild tenderness to the right upper quadrant. Bowel sounds x4. EXTREMITIES: Distal pulses and motor sensation is intact. Capillary refills brisk. DIAGNOSES AND PLAN: Acute cholecystitis with cbd enlargement, had magnetic resonance cholangiopancreatography today, pending final results. Possible endoscopic retrograde cholangiopancreatography tomorrow and laparoscopic cholecystectomy the following day. The patient at this time is medically cleared. We will continue to evaluate this patient in labs. There is no history of breathing, bleeding, or anesthesia problems. Continue pain meds and antibiotics, all consults, and follow up. Deep vein thrombosis prophylaxis no anticoag r/t pending procedure. MERRITT Castillo LEONORA
[2018-10-15 23:23] LABS: SQUAMOUS EPITHIAL 1 /hpf (0-5); URINE BILIRUBIN NEGATIVE (NEGATIVE); URINE BLOOD NEGATIVE (NEGATIVE); URINE CLARITY CLEAR (Clear); URINE COLOR YELLOW (YELLOW); URINE GLUCOSE (UA) NEG (NEGATIVE); URINE LEUKOCYTE ESTERASE TRACE Leu/uL (Negative); URINE PROTEIN NEGATIVE (NEGATIVE); URINE UROBILINOGEN 0.2-1.0 mg/dL (0.2-1.0)
[2018-10-16] MEDS: metroNIDAZOLE 500mg/100ml NS 100 ML IVPB SCH ×3 (00:20→16:28)
[2018-10-16] MEDS: Lactated Ringer's 1,000 ML IV SCH ×3 (04:49→20:39)
[2018-10-16 06:25] LABS: BASO % 0.5 % (0.0-2.0); EOS # 0.3 K/uL (0.0-0.7); EOS % 4.4 % (0.0-4.0); LYMPH # 1.7 K/uL (1.0-4.3); LYMPH % 23.8 % (20.0-40.0); MEAN CELL VOLUME 86.4 fl (81.0-99.0); MEAN CORPUSCULAR HEMOGLOBIN 28.9 pg (27.0-31.0); MEAN CORPUSCULAR HGB CONC 33.4 g/dL (33.0-37.0); MEAN PLATELET VOLUME 8.8 fl (7.2-11.7); MONO # 0.8 K/uL (0.0-0.8); MONO % 10.6 % (0.0-10.0); NEUT # 4.3 K/uL (1.8-7.0); NEUT % 60.7 % (50.0-75.0); RBC 3.82 Mil/uL (3.80-5.20); RED CELL DISTRIBUTION WIDTH 12.8 % (11.5-14.5); WHITE BLOOD COUNT 7.1 K/uL (4.8-10.8)
[2018-10-16 06:30] LABS: INR 1.2; PROTHROMBIN TIME 13.7 Seconds (9.8-13.1)
[2018-10-16 06:33] LABS: PARTIAL THROMBOPLASTIN TIME 29.8 Seconds (25.6-37.1)
[2018-10-16 06:41] LABS: ALB/GLOB RATIO 1.2 (1.0-2.1); ALBUMIN 3.2 g/dL (3.5-5.0); ALT/SGPT 23 U/L (9-52); AST/SGOT 16 U/L (14-36); BLOOD UREA NITROGEN 3 mg/dl (7-17); CALCIUM 8.6 mg/dL (8.4-10.2); GFR NON-AFRICAN AMERICAN > 60
[2018-10-16] MEDS ORDERED: Rocuronium 10 mg/ml (5 ml) ONE (08:11)
[2018-10-16] MEDS ORDERED: Succinylcholine 200 mg/10 ml Inj IV ONE (08:11)
[2018-10-16] MEDS ORDERED: Propofol 10 mg/ml Inj (20 ML) ONE (08:11)
[2018-10-16] MEDS ORDERED: Lidocaine 4% (Laryng-O-Jet) Kit MM ONE (08:12)
[2018-10-16] MEDS ORDERED: Phenylephrine 10 mg/ml Inj ONE (08:15)
[2018-10-16] MEDS ORDERED: Dexamethasone 4 mg/1 ml ONE (08:16)
--- NOTE | 2018-10-16 08:38 | HP ---
HISTORY OF PRESENT ILLNESS: A very pleasant 28-year-old young lady who was admitted on Monday with epigastric pain and discomfort, radiated to the right upper quadrant and found to have gallstones and was referred for GI evaluation. At the time of my evaluation this morning, she is lying comfortably in bed and tolerating liquid. She does still have some epigastric discomfort and pain. There has been no nausea, vomiting or diarrhea. Her pain is not worsened if anything it has improved during her time here. ALLERGIES: SHE HAS NO KNOWN ALLERGIES. MEDICATIONS: She is on no medications. PAST MEDICAL HISTORY: Unremarkable. PAST SURGICAL HISTORY: Unremarkable. FAMILY HISTORY: Unremarkable. SOCIAL HISTORY: She denies any alcohol, tobacco or drug use. PHYSICAL EXAMINATION: GENERAL: She is a well-developed, well-nourished, young lady. Awake, alert, and oriented x3, in no acute distress. VITAL SIGNS: Stable. She is afebrile. ABDOMEN: Soft. Positive bowels sounds. There is epigastric tenderness and positive Bess sign is appreciated. LABORATORY DATA: Her CBC is completely unremarkable, it showed a hemoglobin of 11.1. SMA-7 is remarkable for potassium of 3.4. LFTs were all within normal limits. Her albumin is a little bit low. Her lipase two days ago was 136 within normal range. Her CAT scan and ultrasound were reviewed. The ultrasound in particular showed fluid layering within the gallbladder as well as some stones and possibility of a stone in the gallbladder neck. The CBD was dilated 10 mm. The CAT scan had shown findings suspicious for cholecystitis with possibly impacted calculus of 1.4 cm in the gallbladder neck. There was borderline biliary duct dilatation. The MRCP was done this morning, and the result is unavailable to me yet. IMPRESSION AND PLAN: This is a 28-year-old young lady with gallstones and apparently biliary colic, question as to whether there is any type of choledocholithiasis given the dilatation of the biliary tree. Magnetic resonance cholangiopancreatography was done this morning, and I am awaiting its result. It seems unlikely choledocholithiasis given the normalcy of her liver function tests, but certainly would like to find out the magnetic resonance cholangiopancreatography before we told. If the magnetic resonance cholangiopancreatography is unremarkable, she just needs laparoscopic cholecystectomy. If however there is evidence of common bile duct stone, she will need endoscopic retrograde cholangiopancreatography preoperatively. We will await for those results before making any further recommendations. Noé Looney MD
[2018-10-16] MEDS ORDERED: Bupivacaine HCl 0.5% PF (30 ml) Inj ONE (08:53)
[2018-10-16] MEDS ORDERED: Lactated Ringer's 1,000 ML IV ONE ×2 (09:10→10:00)
[2018-10-16] MEDS ORDERED: Midazolam 2 MG/2 ML VIAL ONE (09:11)
[2018-10-16] MEDS ORDERED: Ciprofloxacin 400mg/200ml D5W IVPB ONE (09:20)
[2018-10-16] MEDS ORDERED: Bupivacaine 0.5% Inj(30mL) IJ ONE ×2 (09:45)
[2018-10-16] MEDS ORDERED: Neostigmine 1:1000 (1 mg/ml) Inj ONE (10:31)
[2018-10-16] MEDS ORDERED: HYDROmorphone 0.5 mg/0.5 ml ISec IVP PRN (10:56)
--- NOTE | 2018-10-16 10:59 | PCM.SURG1 ---
Surgeon's Initial Post Op Note - Surgeon's Notes Surgeon: Dr. [employer] Dean: Harris PGY4, PGY2, Carlos WADE Type of Anesthesia: General Endo Anesthesia Administered By: Dr. Parker Pre-Operative Diagnosis: Symptomatic Cholelithiasis Operative Findings: Critical View of Saftey Achieved. Large distended Gallbaldder. Clear hydrops bile during aspiration. Multiple stones in GB, large stone in neck of GB. Post-Operative Diagnosis: Acute Cholecystitis Operation Performed: 1. Laparoscopic Cholecystectomy Specimen/Specimens Removed: 1. Gallbladder Estimated Blood Loss: EBL {In ML}: 10 Drains Used: No Drains Post-Op Condition: Good Date of Surgery/Procedure: 10/16/18 Time of Surgery/Procedure: 10:59
[2018-10-16] MEDS ORDERED: Lactated Ringer's 1,000 ML IV SCH (11:00)
[2018-10-16] MEDS ORDERED: Oxycodone/Acetaminophen 5/325 mg Tab PO PRN (11:01)
--- NOTE | 2018-10-16 13:48 | CP.PCM.PN ---
Subjective - Date & Time of Evaluation Date of Evaluation: 10/16/18 Time of Evaluation: 13:48 - Subjective Subjective: pt doing well. no f/c, n/v/d. am labs noted. for yara baptiste today @ 9am. Objective - Vital Signs/Intake and Output Vital Signs (last 24 hours): Temp Pulse Resp BP Pulse Ox 97.6 F 70 18 110/70 96 10/16/18 12:33 10/16/18 12:33 10/16/18 12:33 10/16/18 12:33 10/16/18 12:33 Intake and Output: 10/16/18 10/16/18 06:59 18:59 Intake Total 1700 Balance 1700 - Medications Medications: Current Medications Acetaminophen (Tylenol 325mg Tab) 650 mg PO Q6 PRN PRN Reason: Pain, Mild (1-3) Last Admin: 10/14/18 20:42 Dose: 650 mg Lactated Ringer's (Lactated Ringer's) 1,000 mls @ 125 mls/hr IV .Q8H LUIS FELIPE Last Admin: 10/16/18 12:26 Dose: 125 mls/hr Ciprofloxacin (Cipro 400mg/200ml Dsw) 400 mg in 200 mls @ 200 mls/hr IVPB Q12 LUIS FELIPE; Protocol Last Admin: 10/15/18 20:23 Dose: 200 mls/hr Metronidazole (Flagyl 500mg/100ml Ns) 100 mls @ 100 mls/hr IVPB Q8 LUIS FELIPE; Protoc ol Last Admin: 10/16/18 08:14 Dose: 100 mls/hr Acetaminophen (Ofirmev) 100 mls @ 400 mls/hr IVPB Q6H LUIS FELIPE; Protocol Stop: 10/17/18 08:31 Ibuprofen (Motrin Tab) 600 mg PO Q8 PRN PRN Reason: Fever >100.4 F Morphine Sulfate (Morphine) 2 mg IVP Q4 PRN PRN Reason: Pain, severe (8-10) Last Admin: 10/15/18 15:22 Dose: 2 mg Ondansetron HCl (Zofran Inj) 4 mg IVP Q6 PRN PRN Reason: Nausea/Vomiting Oxycodone/Acetaminophen (Percocet 5/325 Mg Tab) 1 tab PO Q4 PRN PRN Reason: Pain, moderate (4-7) Stop: 10/19/18 11:02 Pantoprazole Sodium (Protonix Inj) 40 mg IVP DAILY LUIS FELIPE Last Admin: 10/16/18 08:14 Dose: 40 mg - Labs Labs: 10/16/18 05:35 10/16/18 05:35 PT 13.7 Seconds (9.8-13.1) H 10/16/18 05:35 INR 1.2 10/16/18 05:35 APTT 29.8 Seconds (25.6-37.1) 10/16/18 05:35 - Constitutional Appears: Well, Non-toxic, No Acute Distress - Head Exam Head Exam: ATRAUMATIC, NORMAL INSPECTION, NORMOCEPHALIC - Eye Exam Eye Exam: EOMI, Normal appearance, PERRL Pupil Exam: NORMAL ACCOMODATION, PERRL - ENT Exam ENT Exam: Mucous Membranes Moist, Normal Exam - Neck Exam Neck Exam: Full ROM, Normal Inspection. absent: Lymphadenopathy - Respiratory Exam Respiratory Exam: Clear to Ausculation Bilateral, NORMAL BREATHING PATTERN - Cardiovascular Exam Cardiovascular Exam: REGULAR RHYTHM, RRR, +S1, +S2. absent: Murmur - GI/Abdominal Exam GI & Abdominal Exam: Soft, Normal Bowel Sounds. absent: Tenderness Additional comments: mild tenderness ruq - Extremities Exam Extremities Exam: Full ROM, Normal Capillary Refill, Normal Inspection. absent: Joint Swelling, Pedal Edema - Back Exam Back Exam: NORMAL INSPECTION - Neurological Exam Neurological Exam: Alert, Awake, CN II-XII Intact, Normal Gait, Oriented x3 - Psychiatric Exam Psychiatric exam: Normal Affect, Normal Mood - Skin Skin Exam: Dry, Intact, Normal Color, Warm Assessment and Plan (1) DVT prophylaxis Assessment & Plan: scd nad ae hose ambulation Status: Acute (2) Acute cholecystitis Assessment & Plan: for lap emile today, med cleared pain control, npo, ivf surgery consult to follow Status: Acute
--- NOTE | 2018-10-16 15:27 | CP.PCM.HP ---
History of Present Illness - History of Present Illness History of Present Illness: pt admitted for cholecystitis. no f/c, n/v/d at present. mara po. labs noted. surgical input appriciated Present on Admission - Present on Admission Any Indicators Present on Admission: No Review of Systems - Gastrointestinal Gastrointestinal: As Per HPI, Abdominal Pain Past Patient History - Past Medical History & Family History Past Medical History?: No - Past Social History Smoking Status: Never Smoked - CARDIAC Hx Cardiac Disorders: No - PULMONARY Hx Respiratory Disorders: No - NEUROLOGICAL Hx Neurological Disorder: No - HEENT Hx HEENT Problems: No - RENAL Hx Chronic Kidney Disease: No - ENDOCRINE/METABOLIC Hx Endocrine Disorders: No - HEMATOLOGICAL/ONCOLOGICAL Hx Blood Disorders: No - INTEGUMENTARY Hx Dermatological Problems: No - MUSCULOSKELETAL/RHEUMATOLOGICAL Hx Musculoskeletal Disorders: No - GASTROINTESTINAL Hx Gastritis: Yes - GENITOURINARY/GYNECOLOGICAL Hx Genitourinary Disorders: No - PSYCHIATRIC Hx Psychophysiologic Disorder: No Hx Substance Use: No - SURGICAL HISTORY Hx Surgeries: No - ANESTHESIA Hx Anesthesia: Yes Hx Anesthesia Reactions: No Hx Malignant Hyperthermia: No Meds Allergies/Adverse Reactions: Allergies Allergy/AdvReac Type Severity Reaction Status Date / Time No Known Allergies Allergy Verified 06/27/17 19:26 Physical Exam - Constitutional Appears: Well, Non-toxic, No Acute Distress - Head Exam Head Exam: ATRAUMATIC, NORMAL INSPECTION, NORMOCEPHALIC - Eye Exam Eye Exam: EOMI, Normal appearance, PERRL Pupil Exam: NORMAL ACCOMODATION, PERRL - ENT Exam ENT Exam: Mucous Membranes Moist, Normal Exam - Neck Exam Neck exam: Positive for: Normal Inspection - Respiratory Exam Respiratory Exam: Clear to Auscultation Bilateral, NORMAL BREATHING PATTERN - Cardiovascular Exam Cardiovascular Exam: REGULAR RHYTHM, RRR, +S1, +S2 - GI/Abdominal Exam GI & Abdominal Exam: Normal Bowel Sounds, Soft, Tenderness Additional comments: ruq - Extremities Exam Extremities exam: Positive for: full ROM, normal capillary refill, normal inspection, pedal pulses present - Back Exam Back exam: NORMAL INSPECTION - Neurological Exam Neurological exam: Alert, CN II-XII Intact, Normal Gait, Oriented x3, Reflexes Normal - Psychiatric Exam Psychiatric exam: Normal Affect, Normal Mood - Skin Skin Exam: Dry, Intact, Normal Color, Warm Results - Vital Signs Recent Vital Signs: Last Vital Signs Temp 98.5 F 10/16/18 13:30 Pulse 86 05/28/19 13:30 Resp 18 10/16/18 13:30 BP 105/66 10/16/18 13:30 Pulse Ox 94 L 10/16/18 13:30 - Labs Result Diagrams: 10/16/18 05:35 10/16/18 05:35 Labs: Laboratory Results - last 24 hr 10/15/18 10/16/18 10/16/18 22:34 05:35 05:35 WBC 7.1 RBC 3.82 Hgb 11.0 L Hct 33.0 L MCV 86.4 MCH 28.9 MCHC 33.4 RDW 12.8 Plt Count 213 MPV 8.8 Neut % (Auto) 60.7 Lymph % (Auto) 23.8 Bremer % (Auto) 10.6 H Eos % (Auto) 4.4 H Baso % (Auto) 0.5 Neut # (Auto) 4.3 Lymph # (Auto) 1.7 [place] # (Auto) 0.8 Eos # (Auto) 0.3 Baso # (Auto) 0.0 PT INR APTT Sodium 136 Potassium 3.7 Chloride 102 Carbon Dioxide 26 Anion Gap 12 BUN 3 L Creatinine 0.6 L Est GFR ( Amer) > 60 Est GFR (Non-Af Amer) > 60 Random Glucose 95 Calcium 8.6 Phosphorus 3.6 Magnesium 1.7 Total Bilirubin 0.2 AST 16 ALT 23 Alkaline Phosphatase 44 Total Protein 5.8 L Albumin 3.2 L Globulin 2.6 Albumin/Globulin Ratio 1.2 Urine Color Yellow Urine Clarity Clear Urine pH 7.0 Ur Specific [place] 1.010 Urine Protein Negative Urine Glucose (UA) Neg Urine Ketones Trace Urine Blood Negative Urine Nitrate Negative Urine Bilirubin Negative Urine Urobilinogen 0.2-1.0 Ur Leukocyte Esterase Trace Urine RBC (Auto) 2 Urine Microscopic WBC < 1 Ur Squamous Epith Cells 1 10/16/18 05:35 WBC RBC Hgb Hct MCV MCH MCHC RDW Plt Count MPV Neut % (Auto) Lymph % (Auto) [place] % (Auto) Eos % (Auto) Baso % (Auto) Neut # (Auto) Lymph # (Auto) [place] # (Auto) Eos # (Auto) Baso # (Auto) PT 13.7 H INR 1.2 APTT 29.8 Sodium Potassium Chloride Carbon Dioxide Anion Gap BUN Creatinine Est GFR ( Amer) Est GFR (Non-Af Amer) Random Glucose Calcium Phosphorus Magnesium Total Bilirubin AST ALT Alkaline Phosphatase Total Protein Albumin Globulin Albumin/Globulin Ratio Urine Color Urine Clarity Urine pH Ur Specific [place] Urine Protein Urine Glucose (UA) Urine Ketones Urine Blood Urine Nitrate Urine Bilirubin Urine Urobilinogen Ur Leukocyte Esterase Urine RBC (Auto) Urine Microscopic WBC Ur Squamous Epith Cells Decision To Admit - Pt Status Changed To: Hospital Disposition Of: Inpatient - Admit Certification Admit to Inpatient:: After my assessment, the patient will require hospitalization for at least two midnights. This is because of the severity of symptoms shown, intensity of services needed, and/or the medical risk in this patient being treated as an outpatient. - . Bed Request Type: Med/Surg Admitting Physician: Kay Lawson
[2018-10-16] MEDS: Ciprofloxacin 400mg/200ml D5W 400 MG/200 ML BAG IVPB SCH ×2 (20:40→21:48)
[2018-10-17] MEDS: metroNIDAZOLE 500mg/100ml NS 100 ML IVPB SCH ×2 (00:20→08:43)
[2018-10-17] MEDS: Lactated Ringer's 1,000 ML IV SCH (05:10)
[2018-10-17 06:32] LABS: HEMOGLOBIN 10.4 g/dL (12.0-16.0); MEAN CORPUSCULAR HEMOGLOBIN 29.2 pg (27.0-31.0); MEAN CORPUSCULAR HGB CONC 33.6 g/dL (33.0-37.0); RBC 3.55 Mil/uL (3.80-5.20); RED CELL DISTRIBUTION WIDTH 12.6 % (11.5-14.5); WHITE BLOOD COUNT 9.9 K/uL (4.8-10.8)
[2018-10-17 07:14] LABS: ALB/GLOB RATIO 1.1 (1.0-2.1); ALT/SGPT 23 U/L (9-52); AST/SGOT 23 U/L (14-36); BLOOD UREA NITROGEN 5 mg/dl (7-17); CALCIUM 8.7 mg/dL (8.4-10.2); GFR NON-AFRICAN AMERICAN > 60
[2018-10-17 07:55] VITALS: BP 107/59; PULSE 84; RESP 20; TEMP 97.6; O2SAT 100
[2018-10-17] MEDS: Ciprofloxacin 400mg/200ml D5W 400 MG/200 ML BAG IVPB SCH (08:43)
[2018-10-17] MEDS ORDERED: Pantoprazole 40 mg EC Tab PO SCH (09:45)
--- NOTE | 2018-10-17 10:03 | CP.PCM.DIS ---
Provider - Provider Date of Admission: 10/14/18 02:26 Attending physician: Kay Lawson MD Consults: 10/14/18 03:18 General Surgery Consult Routine Comment: Consulting Provider: Seth Meza Consulting Physician: Seth Meza Reason for Consult: ACUTE SUKI 10/14/18 13:19 Gastroenterology Consult Routine Comment: Consulting Provider: Lee Hector Consulting Physician: Lee Hector Reason for Consult: acute cholelitiasis Time Spent in preparation of Discharge (in minutes): 15 Diagnosis - Discharge Diagnosis (1) DVT prophylaxis Status: Acute (2) Acute cholecystitis Status: Acute Hospital Course - Lab Results Lab Results: Micro Results 10/14/18 03:15 Blood Blood Culture - Preliminary NO GROWTH AFTER 3 DAYS 10/14/18 03:35 Blood Blood Culture - Preliminary NO GROWTH AFTER 3 DAYS Most Recent Lab Values WBC 9.9 K/uL (4.8-10.8) 10/17/18 05:55 RBC 3.55 Mil/uL (3.80-5.20) L 10/17/18 05:55 Hgb 10.4 g/dL (12.0-16.0) L 10/17/18 05:55 Hct 30.9 % (34.0-47.0) L 10/17/18 05:55 MCV 87.0 fl (81.0-99.0) 10/17/18 05:55 MCH 29.2 pg (27.0-31.0) 10/17/18 05:55 MCHC 33.6 g/dL (33.0-37.0) 10/17/18 05:55 RDW 12.6 % (11.5-14.5) 10/17/18 05:55 Plt Count 220 K/uL (130-400) 10/17/18 05:55 MPV 8.8 fl (7.2-11.7) 10/16/18 05:35 Neut % (Auto) 60.7 % (50.0-75.0) 10/16/18 05:35 Lymph % (Auto) 23.8 % (20.0-40.0) 10/16/18 05:35 [place]ick % (Auto) 10.6 % (0.0-10.0) H 10/16/18 05:35 Eos % (Auto) 4.4 % (0.0-4.0) H 10/16/18 05:35 Baso % (Auto) 0.5 % (0.0-2.0) 10/16/18 05:35 Neut # (Auto) 4.3 K/uL (1.8-7.0) 10/16/18 05:35 Lymph # (Auto) 1.7 K/uL (1.0-4.3) 10/16/18 05:35 [place]ick # (Auto) 0.8 K/uL (0.0-0.8) 10/16/18 05:35 Eos # (Auto) 0.3 K/uL (0.0-0.7) 10/16/18 05:35 Baso # (Auto) 0.0 K/uL (0.0-0.2) 10/16/18 05:35 PT 13.7 Seconds (9.8-13.1) H 10/16/18 05:35 INR 1.2 10/16/18 05:35 APTT 29.8 Seconds (25.6-37.1) 10/16/18 05:35 pO2 29 mm/Hg (30-55) L 10/14/18 03:42 VBG pH 7.40 (7.32-7.43) 10/14/18 03:42 VBG pCO2 42 mmHg (40-60) 10/14/18 03:42 VBG HCO3 24.6 mmol/L 10/14/18 03:42 VBG Total CO2 27.3 mmol/L (22-28) 10/14/18 03:42 VBG O2 Sat (Calc) 59.6 % (40-65) 10/14/18 03:42 VBG Base Excess 1.0 mmol/L (0.0-2.0) 10/14/18 03:42 VBG Potassium 4.2 mmol/L (3.6-5.2) 10/14/18 03:42 Sodium 134.0 mmol/L (132-148) 10/14/18 03:42 Chloride 104.0 mmol/L (98-107) 10/14/18 03:42 Glucose 98 mg/dL (65-105) 10/14/18 03:42 Lactate 1.1 mmol/L (0.7-2.1) 10/14/18 03:42 FiO2 21.0 % 10/14/18 03:42 Sodium 134 mmol/l (132-148) 10/17/18 05:55 Potassium 3.7 MMOL/L (3.6-5.0) 10/17/18 05:55 Chloride 101 mmol/L (98-107) 10/17/18 05:55 Carbon Dioxide 26 mmol/L (22-30) 10/17/18 05:55 Anion Gap 11 (10-20) 10/17/18 05:55 BUN 5 mg/dl (7-17) L 10/17/18 05:55 Creatinine 0.5 mg/dl (0.7-1.2) L 10/17/18 05:55 Est GFR ( Amer) > 60 10/17/18 05:55 Est GFR (Non-Af Amer) > 60 10/17/18 05:55 Random Glucose 113 mg/dL (65-105) H 10/17/18 05:55 Calcium 8.7 mg/dL (8.4-10.2) 10/17/18 05:55 Phosphorus 3.6 mg/dl (2.5-4.5) 10/16/18 05:35 Magnesium 1.7 MG/DL (1.6-2.3) 10/16/18 05:35 Total Bilirubin 0.2 mg/dl (0.2-1.3) 10/17/18 05:55 AST 23 U/L (14-36) 10/17/18 05:55 ALT 23 U/L (9-52) 10/17/18 05:55 Alkaline Phosphatase 40 U/L (38-126) 10/17/18 05:55 Total Protein 5.6 G/DL (6.3-8.2) L 10/17/18 05:55 Albumin 3.0 g/dL (3.5-5.0) L 10/17/18 05:55 Globulin 2.6 gm/dL (2.2-3.9) 10/17/18 05:55 Albumin/Globulin Ratio 1.1 (1.0-2.1) 10/17/18 05:55 Lipase 136 U/L (23-300) 10/13/18 23:16 Venous Blood Potassium 4.2 mmol/L (3.6-5.2) 10/14/18 03:42 Urine Color Yellow (YELLOW) 10/15/18 22:34 Urine Clarity Clear (Clear) 10/15/18 22:34 Urine pH 7.0 (5.0-8.0) 10/15/18 22:34 Ur Specific [place] 1.010 (1.003-1.030) 10/15/18 22:34 Urine Protein Negative mg/dL (NEGATIVE) 10/15/18 22:34 Urine Glucose (UA) Neg mg/dL (NEGATIVE) 10/15/18 22:34 Urine Ketones Trace mg/dL (NEGATIVE) 10/15/18 22:34 Urine Blood Negative (NEGATIVE) 10/15/18 22:34 Urine Nitrate Negative (NEGATIVE) 10/15/18 22:34 Urine Bilirubin Negative (NEGATIVE) 10/15/18 22:34 Urine Urobilinogen 0.2-1.0 mg/dL (0.2-1.0) 10/15/18 22:34 Ur Leukocyte Esterase Trace Lisa/uL (Negative) 10/15/18 22:34 Urine RBC (Auto) 2 /hpf (0-3) 10/15/18 22:34 Urine Microscopic WBC < 1 /hpf (0-5) 10/15/18 22:34 Ur Squamous Epith Cells 1 /hpf (0-5) 10/15/18 22:34 Blood Type O POSITIVE 10/14/18 08:30 Blood Type Confirm O POSITIVE 10/14/18 10:10 Antibody Screen Negative 10/14/18 08:30 BBK History Checked No verified bt 10/14/18 08:30 - Hospital Course Hospital Course: pt admitted for cholecystitis. had mrcp, ct and us of abd. surgical and gi consults had lap choleysterday and cleared for dc today Discharge Exam - Head Exam Head Exam: ATRAUMATIC, NORMAL INSPECTION, NORMOCEPHALIC - Eye Exam Eye Exam: EOMI, Normal appearance, PERRL Pupil Exam: NORMAL ACCOMODATION, PERRL - Respiratory Exam Respiratory Exam: Clear to PA & Lateral, NORMAL BREATHING PATTERN, UNREMARKABLE - GI/Abdominal Exam GI & Abdominal Exam: Normal Bowel Sounds, Soft, Unremarkable - Extremities Exam Extremities exam: full ROM, normal capillary refill, normal inspection, pedal pulses present - Neurological Exam Neurological exam: Alert, CN II-XII Intact, Normal Gait, Oriented x3, Reflexes Normal - Psychiatric Exam Psychiatric exam: Normal Affect, Normal Mood - Skin Skin Exam: Dry, Intact, Normal Color, Warm Discharge Plan - Discharge Medications Prescriptions: Amoxicillin/Clavulanate [Augmentin 875 MG-125 MG] 1 tab PO BID #14 tab - Follow Up Plan Condition: FAIR Disposition: HOME/ ROUTINE Instructions: Cholecystectomy, Laparoscopic Surgery, Laceration Repair With Glue (DC), Cholecystitis (DC) Additional Instructions: follow up with primary MD and Torie Locke in 1-2 weeks final dx-acute cholecystitis doing well. mara po cleared for dc. rted prn. activity as mara Referrals: Seth Meza MD [Staff Provider] - Lee Hector MD, PhD [Staff Provider] - Orville Locke MD [Medical Doctor] -
--- NOTE | 2018-10-17 10:54 | CP.PCM.PN ---
Subjective - Date & Time of Evaluation Date of Evaluation: 10/17/18 Time of Evaluation: 10:47 - Subjective Subjective: General Surgery Pt seen and examined this AM. She has been ambulating without difficulty and reports her pain is well controlled. Tolerating diet. Labs and vitals noted. PE Gen: Pt found walking in the hallway in NAD Skin: warm and dry, see ABD Cardio: s1s2 RRR Lungs: CTA bilaterally Abd: Soft, NTND, (+) laparoscopic incisions x 4 c/d/i. A/P POD 1 s/p Lap appy Pt cleared for discharge from surgical perspective RX left for Augmentin 875/125 mg 1 tab q 12 x 7 days. Pt to follow up with Dr. Locke in the office in 10-14 days. Objective - Vital Signs/Intake and Output Vital Signs (last 24 hours): Temp Pulse Resp BP Pulse Ox 97.6 F 84 20 107/59 L 100 10/17/18 07:54 10/17/18 07:54 10/17/18 07:54 10/17/18 07:54 10/17/18 07:54 - Medications Medications: Current Medications Acetaminophen (Tylenol 325mg Tab) 650 mg PO Q6 PRN PRN Reason: Pain, Mild (1-3) Last Admin: 10/14/18 20:42 Dose: 650 mg Ciprofloxacin (Cipro 400mg/200ml Dsw) 400 mg in 200 mls @ 200 mls/hr IVPB Q12 LUIS FELIPE; Protocol Last Admin: 10/17/18 08:43 Dose: 200 mls/hr Metronidazole (Flagyl 500mg/100ml Ns) 100 mls @ 100 mls/hr IVPB Q8 LUIS FELIPE; Protocol Last Admin: 10/17/18 08:43 Dose: 100 mls/hr Ibuprofen (Motrin Tab) 600 mg PO Q8 PRN PRN Reason: Fever >100.4 F Ondansetron HCl (Zofran Inj) 4 mg IVP Q6 PRN PRN Reason: Nausea/Vomiting Oxycodone/Acetaminophen (Percocet 5/325 Mg Tab) 1 tab PO Q4 PRN PRN Reason: Pain, moderate (4-7) Stop: 10/19/18 11:02 Last Admin: 10/16/18 23:38 Dose: 1 tab Pantoprazole Sodium (Protonix Ec Tab) 40 mg PO DAILY LUIS FELIPE - Labs Labs: 10/17/18 05:55 10/17/18 05:55 PT 13.7 Seconds (9.8-13.1) H 10/16/18 05:35 INR 1.2 10/16/18 05:35 APTT 29.8 Seconds (25.6-37.1) 10/16/18 05:35
--- NOTE | 2018-10-22 22:58 | OP ---
PROCEDURE DATE: 10/16/2018 PREOPERATIVE DIAGNOSIS: Acute cholecystitis. POSTOPERATIVE DIAGNOSIS: Acute cholecystitis. SURGEON: Orville Locke MD REAL PROPERTY EVALUATOR: Resident, PROCEDURE: Laparoscopic cholecystectomy. ANESTHESIA: General. FINDINGS: The patient had a distended and acutely inflamed gallbladder, critical view of safety was obtained. SPECIMEN: Gallbladder. ESTIMATED BLOOD LOSS: 10 mL. COMPLICATIONS: None. DRAINS: None. POSTOPERATIVE CONDITION: Stable. BRIEF HISTORY: This is a 28-year-old female who presented to the emergency room with complaints of 1-day history of right upper quadrant pain, radiating to the back associated with some nausea. The patient was found to have a distended gallbladder along with inflamed neck of the gallbladder. The patient was clinically diagnosed with acute cholecystitis. The patient was admitted to the hospital, placed on IV antibiotics and prepped for the operating room. Prior to undergoing surgery, the patient's ultrasound had a CBD that was dilated to 1 cm, so she underwent an MRCP for which MRCP was negative for any findings. The patient was explained the risks and benefits of procedure, not limited to bleeding, infection, possible injury to surrounding structures along with the biliary tree. The patient agreed and surgical consent was obtained. DESCRIPTION OF PROCEDURE: On the date of procedure, the patient was brought to the operating room. She was placed in supine position. Bilateral sequential devices were placed to the lower extremities. The patient was placed under general endotracheal anesthesia, which she tolerated well. The patient was prepped and draped in the usual sterile fashion using chlorhexidine prep. After an adequate time-out, the abdominal cavity was entered. Through the umbilicus, using a Veress needle, the abdominal cavity was insufflated to 15 mmHg using CO2 with good opening pressures. I then proceeded to make a 1-cm infraumbilical incision through which an 11-mm trocar was placed. I then placed a 5-mm laparoscope into the abdominal cavity and performed a diagnostic laparoscopy. No gross pathology noted. No injury noted from our initial port site insertion. We then proceeded to place three additional 5-mm ports, one to the subxiphoid area and two to the right abdomen. We then proceeded to place instruments into the abdominal cavity. Of note, the gallbladder was acutely inflamed and distended. I made a decision to drain the gallbladder. I placed a Veress needle through isolated right upper quadrant stab incision, then the gallbladder was punctured. The patient had hydrops of gallbladder and all the bladder drained and suctioned out. At this point, we were able to grasp the gallbladder, and the gallbladder was retracted through the right upper quadrant. The patient did have some omental adhesions to the gallbladder which were bluntly dissected off. We further continued our dissection. Peritoneum was bluntly dissected off the gallbladder in order to bring the cystic duct in to view. We then proceeded using a [place] dissector to circumferentially isolate the cystic duct. In a similar fashion, the cystic artery was isolated. Once the cystic artery and cystic duct were isolated, we placed two 5-mm clips applied to distal and one proximal and in a similar fashion two clips on the cystic artery one proximal. Using Endo Aki, the cystic artery and cystic duct were transected. We then proceeded to remove the gallbladder off the liver bed using a combination of blunt and hydrodissection along with the hook cautery. The patient has significant inflammation to the surrounding area. The gallbladder was essentially removed off the liver bed. Once the gallbladder was removed off the liver bed, it was placed in an EndoCatch bag. The liver bed was copiously irrigated, and all irrigation was then suctioned out. I once again examined the liver bed, and it was examined for adequate hemostasis, which was then confirmed. I then proceeded to remove the gallbladder under direct visualization from the abdominal cavity. Once again, I examined the liver bed and adequate hemostasis was confirmed. At this point, we were satisfied with the procedure. The fascia at the umbilical port site was reapproximated using a UR 5 Vicryl stitch. The abdomen was then cleaned and dried. The skin incisions were reapproximated using a 4-0 Monocryl. The laparoscopic port sites were then infiltrated with local anesthetic. The patient tolerated the procedure well. She was extubated without any complication and brought to recovery room in stable condition. At the end of procedure, there was an adequate count to all instruments, laps and sponges. Orville Locke MD
== END 2018-10-17 14:27 | disposition home or self-care (01) | DRG 494 ==
LOC: H.ER 21:44 → H.ERHOLD 10-14 02:26 → H.MEDSURG1 10-14 04:09
PROVIDERS: ADMIT Family Medicine; ATTEND Family Medicine
PROC: 0FT44ZZ Resection of Gallbladder, Percutaneous Endoscopic Approach (ICD-10-PCS; principal; 2018-10-16 09:00)
DX: K80.12 Calculus of gallbladder with acute and chronic cholecystitis without obstruction (principal); K21.9 Gastro-esophageal reflux disease without esophagitis; K29.70 Gastritis, unspecified, without bleeding; K52.9 Noninfective gastroenteritis and colitis, unspecified; K59.00 Constipation, unspecified; K82.8 Other specified diseases of gallbladder; N83.202 Unspecified ovarian cyst, left side; K44.9 Diaphragmatic hernia without obstruction or gangrene